=== PATIENT | female | born 1980 | race Caucasian/White ===

== ENCOUNTER 2019-07-11 11:04 | Outpatient (CLI) | payer MEDICARE, MEDICAID, SELFPAY ==
[2019-07-11 11:20] VITALS: BP 115/72; PULSE 77; RESP 18; TEMP 36.7; O2SAT 100
[2019-07-11] MEDS: iron sucrose 500 MG in sodium chloride 0.9% 250 ML 78.6 MG IV (11:50)
[2019-07-11 13:39] VITALS: BMI 29.0
== END 2019-07-11 11:05 | disposition home or self-care (01) ==
LOC: GILAB 11:08
PROVIDERS: Visit Provider Nurse Practitioner Family
DX: N18.1 Chronic kidney disease, stage 1 (principal); D63.1 Anemia in chronic kidney disease
CPT/HCPCS: 96365; 96366; J1756; J7050

== ENCOUNTER 2019-07-25 11:00 | Outpatient (CLI) | payer MEDICARE, MEDICAID, SELFPAY ==
[2019-07-25 11:10] VITALS: BMI 29.0
[2019-07-25] MEDS: iron sucrose 500 MG in sodium chloride 0.9% 250 ML 68.8 MG IV (11:30)
== END 2019-07-25 11:01 | disposition home or self-care (01) ==
LOC: GILAB 11:04
PROVIDERS: Visit Provider Nurse Practitioner Family
DX: D63.1 Anemia in chronic kidney disease (principal); N18.1 Chronic kidney disease, stage 1
CPT/HCPCS: 96365; 96366; J1756; J7050

== ENCOUNTER → 2019-12-23 18:00 | Outpatient (BNVA) | payer MEDICARE, MEDICAID, SELFPAY | PROVIDERS: Visit Provider Nurse Practitioner Family | DX: F19.11 Other psychoactive substance abuse, in remission (principal); R19.01 Right upper quadrant abdominal swelling, mass and lump | CPT/HCPCS: 80053; 86705; 86706; 86709; 86803; 87340 ==

== ENCOUNTER 2020-01-16 09:41 | Outpatient (CLI) | payer MEDICARE, MEDICAID, SELFPAY ==
--- NOTE | 2020-01-16 09:30 | US_ITS ---
WS: [id number] ULTRASOUND ABDOMEN LIMITED SOFT TISSUE CLINICAL INFORMATION: painful lump on RUQ COMPARISON: None. FINDINGS: Cholecystectomy. Ultrasound of concern right upper quadrant drain overlying the ribs. Ultrasound area of concern demonstrates no underlying cystic or solid mass. No drainable fluid collections. Normal u nderlying soft tissues. US/US abdomen limited [id number] IMPRESSION: Normal soft tissue ultrasound
== END 2020-01-16 09:42 | disposition home or self-care (01) ==
LOC: RAD 09:47
PROVIDERS: Visit Provider Nurse Practitioner Family
DX: R19.01 Right upper quadrant abdominal swelling, mass and lump (principal)
CPT/HCPCS: 76705